=== PATIENT | female | born 1975 | race Caucasian/White ===

== ENCOUNTER 2019-01-19 06:40 | Day surgery (SDC) | payer OTHER ==
[~2019-01-19 06:40] MED LIST: SLOW FE142 MG PO
[2019-01-19] MEDS ORDERED: PERCOCET 5-3251 EACH PO (10:16)
== END 2019-01-19 13:00 | disposition home or self-care (01) ==
LOC: CIR.AMB 06:40
DX: D35.1 Benign neoplasm of parathyroid gland (principal)